=== PATIENT | female | born 1990 | race Caucasian/White ===

== ENCOUNTER 2017-01-24 08:45 | Inpatient (IN) ==
--- NOTE | 2017-01-24 09:05 | Emergency Department Note ---
Disposition Clinical Impression: Suicidal ideation Disposition: Admitted As Inpatient Condition: Good Referrals: NO,PCP [Primary Care Provider] - Time of Disposition: 11:30 Psych HPI - General Chief Complaint: ED Psychiatric Symptoms Stated Complaint: psych consult Time Seen by Provider: 01/24/17 09:02 Source: patient Limitations: no limitations Nursing Notes Reviewed: Yes Vital Signs Reviewed: Yes - History of Present Illness HPI Narrative: Patient emergency department suicidal thoughts. History of depression that she states is getting worse. Initially started on what to do and taken off her lithium, Seroquel, and Zoloft. Patient plans intentionally overdosed on heroin. History of opiate abuse with last encounter in June. Pt complaint: suicidal ideation Onset (ago): day(s) Duration: constant History of similar episodes: No Improves with: none Worsens with: medication Context: new medication(s) Alleged intoxication: No Associated Psychiatric Symptoms: depression, suicidal ideation Associated symptoms: Reports: denies other symptoms Traumatic symptoms: denies traumatic injury Treatments prior to arrival: none Self harm or harm to others: admits thoughts of self harm, has plan - Related Data Home Medications Medication Instructions Recorded Confirmed Hulett Carbonate 300 mg PO DAILY 11/14/16 11/14/16 Medroxyprogesterone Acetate 150 mg IM Q3M 11/14/16 11/14/16 [DEPO-Provera] Naltrexone HCl [Revia] 50 mg PO DAILY 11/14/16 11/14/16 Naltrexone Microspheres [Vivitrol] 380 mg IM QMONTH 11/14/16 11/14/16 Quetiapine Fumarate [Seroquel Xr] 150 mg PO DAILY 11/14/16 11/14/16 Sertraline [Zoloft] 100 mg PO DAILY 11/14/16 11/14/16 Trazodone HCl 100 mg PO HS 11/14/16 11/14/16 valACYclovir [Valtrex] 500 mg PO BID 11/14/16 11/14/16 Allergies Allergy/AdvReac Type Severity Reaction Status Date / Time No Known Allergies Allergy Verified 11/14/16 10:02 Review of Systems: Patient denies any physical complaints. All systems ED: reviewed and negative except as stated. Constitutional: Denies: fever Cardiovascular: Denies: chest pain Respiratory: Denies: dyspnea Gastrointestinal: Denies: vomiting Past Medical History - Past Medical History Attestation: Yes The following information was validated with the patient. Source: patient Medical history: Reports: hepatitis, other Surgical history: Reports: no surgical history Psychiatric history: Reports: bipolar, PTSD - Social History Smoking Status: Current every day smoker Smokeless Tobacco Status: No Alcohol use: Reports: none Drug use: Reports: none Physical Exam Patient awake alert sitting up in bed in no acute distress. Flat affect., Cooperative. - General Limitations: no limitations General appearance: alert - Head Head exam: atraumatic - Eye Eye exam: Present: normal appearance - ENT ENT exam: normal exam - Neck Neck exam: Present: normal inspection - Chest Chest inspection: Present: normal inspection - Respiratory Respiratory exam: Present: normal lung sounds bilaterally - Cardiovascular Cardiovascular exam: Present: regular rate, normal rhythm - Neurological Exam Neurological exam: Present: alert, oriented X3 - Psychiatric Psychiatric exam: Present: flat affect - Skin Skin exam: Present: warm, dry, intact Course Course Narrative: Suicidal thoughts with the plan. [place] slip on chart. Medical clearance and 1A evaluation. - Reevaluation(s) Reevaluation #1: Repeat BP 179/72. She is asymptomatic. 1A at bedside. Patient has been medically cleared. Time: 10:51 - Consultations Consultation #1: 1A accepts for admit Time: 11:30 Vital Signs Temperature 98.2 F 01/24/17 08:47 Pulse Rate 99 01/24/17 08:47 Respiratory Rate 18 01/24/17 08:47 Blood Pressure 186/118 01/24/17 08:47 O2 Sat by Pulse Oximetry 97 01/24/17 08:47 Temperature 98.2 F 01/24/17 08:47 Pulse Rate 72 01/24/17 10:39 Respiratory Rate 18 01/24/17 09:05 Blood Pressure 179/75 01/24/17 10:39 O2 Sat by Pulse Oximetry 98 01/24/17 10:39 Oxygen Delivery Oxygen Delivery Room Air Psych - Lab Data Lab results reviewed: Yes I reviewed the patient's lab results. Result diagrams: 01/24/17 09:10 01/24/17 09:10 Lab Results 01/24/17 01/24/17 01/24/17 Range/Units 08:51 08:51 09:05 WBC (4.3-11.1) K/mcL RBC (3.82-4.97) M/mcL Hgb (11.5-15.4) g/dL Hct (35.3-44.9) % MCV (83.0-100.0) fL MCH (28.0-33.3) pg MCHC (31.6-35.5) g/dL RDW (11.5-14.5) % Plt Count (140-400) K/mcL MPV (9.4-12.4) fL Immature Gran % (0-4) % Seg Neutrophils % % Lymphocytes % % Monocytes % % Eosinophils % % Basophils % % Neutrophils # (1.6-8.9) K/mcL Lymphocytes # (0.6-4.6) K/mcL Monocytes # (0.0-1.3) K/mcL Eosinophils # (0.0-0.6) K/mcL Basophils # (0.0-0.2) K/mcL Sodium (136-145) mEq/L Potassium (3.5-4.5) mEq/L Chloride (98-109) mEq/L Carbon Dioxide (19-29) mEq/L BUN (7-20) mg/dL Creatinine (0.57-1.11) mg/dL Est GFR ( Amer) (> 60) Est GFR (Non-Af Amer) (> 60) BUN/Creatinine Ratio (6-26) Glucose (70-99) mg/dL Calculated Osmolality (280-300) Calcium (8.6-10.8) mg/dL Urine Color Yellow (Yellow) Urine Clarity Clear (Clear) Urine pH 6.5 (5.0-8.0) pH Units Ur Specific [place] 1.016 (1.010-1.025) Urine Protein Negative (Neg-Trace) mg/dL Urine Glucose (UA) Normal (Normal) mg/dL Urine Ketones Negative (Negative) mg/dL Urine Blood Negative (Negative) Urine Nitrite Negative (Negative) Urine Bilirubin Negative (Negative) Urine Urobilinogen Normal (Normal) mg/dL Ur Leukocyte Esterase Negative (Negative) Urine Test Negative (Negative) Salicylates (15-30) mg/dL Urine Opiates Screen Negative (Tekwba=253) ng/mL Acetaminophen (10-30) mcg/mL Ur Barbiturates Screen Negative (Ejzdni=470) ng/mL Ur Phencyclidine Scrn Negative (Cutoff=25) ng/mL Ur Amphetamines Screen Negative (Sysxyw=0821) ng/mL U Benzodiazepines Scrn Negative (Cptyjm=960) ng/mL Hulett (0.6-1.2) mEq/L Urine Cocaine Screen Negative (Cutoff= 300) ng/mL U Marijuana (THC) Screen Negative (Cutoff = 50) ng/mL Ethyl Alcohol (0-10) mg/dL 01/24/17 01/24/17 01/24/17 Range/Units 09:10 09:10 09:10 WBC 11.6 H (4.3-11.1) K/mcL RBC 5.27 H (3.82-4.97) M/mcL Hgb 15.0 (11.5-15.4) g/dL Hct 44.7 (35.3-44.9) % MCV 84.8 (83.0-100.0) fL MCH 28.5 (28.0-33.3) pg MCHC 33.6 (31.6-35.5) g/dL RDW 13.1 (11.5-14.5) % Plt Count 242 (140-400) K/mcL MPV 10.5 (9.4-12.4) fL Immature Gran % 0.7 (0-4) % Seg Neutrophils % 54.2 % Lymphocytes % 32.6 % Monocytes % 7.8 % Eosinophils % 4.1 % Basophils % 0.6 % Neutrophils # 6.3 (1.6-8.9) K/mcL Lymphocytes # 3.8 (0.6-4.6) K/mcL Monocytes # 0.9 (0.0-1.3) K/mcL Eosinophils # 0.5 (0.0-0.6) K/mcL Basophils # 0.1 (0.0-0.2) K/mcL Sodium 138 (136-145) mEq/L Potassium 3.6 (3.5-4.5) mEq/L Chloride 108 (98-109) mEq/L Carbon Dioxide 20 (19-29) mEq/L BUN 10 (7-20) mg/dL Creatinine 0.76 (0.57-1.11) mg/dL Est GFR ( Amer) > 60 (> 60) Est GFR (Non-Af Amer) > 60 (> 60) BUN/Creatinine Ratio 13 (6-26) Glucose 113 H (70-99) mg/dL Calculated Osmolality 286 (280-300) Calcium 8.8 (8.6-10.8) mg/dL Urine Color (Yellow) Urine Clarity (Clear) Urine pH (5.0-8.0) pH Units Ur Specific [place] (1.010-1.025) Urine Protein (Neg-Trace) mg/dL Urine Glucose (UA) (Normal) mg/dL Urine Ketones (Negative) mg/dL Urine Blood (Negative) Urine Nitrite (Negative) Urine Bilirubin (Negative) Urine Urobilinogen (Normal) mg/dL Ur Leukocyte Esterase (Negative) Urine Test (Negative) Salicylates < 5.0 L (15-30) mg/dL Urine Opiates Screen (Zzuitq=196) ng/mL Acetaminophen < 1.0 L (10-30) mcg/mL Ur Barbiturates Screen (Xyyelx=690) ng/mL Ur Phencyclidine Scrn (Cutoff=25) ng/mL Ur Amphetamines Screen (Nbtesv=6923) ng/mL U Benzodiazepines Scrn (Qcyazg=927) ng/mL Hulett < 0.1 L (0.6-1.2) mEq/L Urine Cocaine Screen (Cutoff= 300) ng/mL U Marijuana (THC) Screen (Cutoff = 50) ng/mL Ethyl Alcohol < 10 (0-10) mg/dL Psychiatric Medical Clearance - Medical Clearance Checklist Does the patient have a NEW psychiatric condition?: No Any abnormalities indicating possible medical illness?: No Any history of medical issues?: Yes Medical History: No Social History Section defined Any abnormal vital signs prior to transfer?: Yes Current Vitals: Last Vital Signs Temp 98.2 F 01/24/17 08:47 Pulse 72 01/24/17 10:39 Resp 18 01/24/17 09:05 BP 179/75 01/24/17 10:39 Pulse Ox 98 01/24/17 10:39 Is the patient intoxicated or cognitively impaired?: No Psychiatric Lab Panel: Drug Levels and Toxicity 01/24/17 01/24/17 01/24/17 08:51 09:10 09:10 Urine Opiates Screen Negative Acetaminophen < 1.0 L Ur Barbiturates Screen Negative Ur Phencyclidine Scrn Negative Ur Amphetamines Screen Negative U Benzodiazepines Scrn Negative Hulett < 0.1 L Urine Cocaine Screen Negative U Marijuana (THC) Screen Negative Ethyl Alcohol < 10 Any abnormalities on the physical exam?: No Any abnormal labs?: No Abnormal Labs: Abnormal lab results WBC 11.6 K/mcL (4.3-11.1) H 01/24/17 09:10 RBC 5.27 M/mcL (3.82-4.97) H 01/24/17 09:10 Glucose 113 mg/dL (70-99) H 01/24/17 09:10 Salicylates < 5.0 mg/dL (15-30) L 01/24/17 09:10 Acetaminophen < 1.0 mcg/mL (10-30) L 01/24/17 09:10 Hulett < 0.1 mEq/L (0.6-1.2) L 01/24/17 09:10 Does the patient require durable medical equiptment?: No Is the patient ambulatory?: Yes Is the patient a fall risk?: No Has the patient been medically cleared?: Yes Any acute medical condition require Tx prior to transfer?: No Critical Care Time Critical Care Time: No
[2017-01-24 09:18] LABS: Basophils # 0.1 K/mcL (0.0-0.2); Basophils % 0.6 %; Eosinophils # 0.5 K/mcL (0.0-0.6); Eosinophils % 4.1 %; Hematocrit 44.7 % (35.3-44.9); Immature Granulocytes % 0.7 % (0-4); Lymphocytes # 3.8 K/mcL (0.6-4.6); Lymphocytes % 32.6 %; Mean Corpuscular HGB Conc 33.6 g/dL (31.6-35.5); Mean Corpuscular Hemoglobin 28.5 pg (28.0-33.3); Mean Corpuscular Volume 84.8 fL (83.0-100.0); Mean Platelet Volume 10.5 fL (9.4-12.4); Monocytes # 0.9 K/mcL (0.0-1.3); Monocytes % 7.8 %; Neutrophils # 6.3 K/mcL (1.6-8.9); Platelet Count 242 K/mcL (140-400); Red Blood Count 5.27 M/mcL (3.82-4.97); Red Cell Distribution Width 13.1 % (11.5-14.5); Segmented Neutrophils % 54.2 %
[2017-01-24 09:19] LABS: Bilirubin,Urine Negative (Negative); Blood,Urine Negative (Negative); Clarity,Urine Clear (Clear); Color,Urine Yellow (Yellow); Glucose,Urine (UA) Normal (Normal); Ketones,Urine Negative (Negative); Leukocyte Esterase,Urine Negative (Negative); Nitrite,Urine Negative (Negative); PH,Urine 6.5 pH Units (5.0-8.0); Protein,Urine Negative (Neg-Trace); Specific Gravity,Urine 1.016 (1.010-1.025); Urobilinogen,Urine Normal (Normal)
[2017-01-24 09:31] LABS: BUN/Creatinine Ratio 13 (6-26); Blood Urea Nitrogen 10 mg/dL (7-20); Calcium 8.8 mg/dL (8.6-10.8); Carbon Dioxide 20 mEq/L (19-29); Chloride 108 mEq/L (98-109); Glucose 113 mg/dL (70-99); Osmolality,Calculated 286 (280-300); Potassium 3.6 mEq/L (3.5-4.5); Sodium 138 mEq/L (136-145); eGFR For African Americans > 60 (> 60); eGFR For Non-African Americans > 60 (> 60)
[2017-01-24 09:32] LABS: Acetaminophen < 1.0 mcg/mL (10-30); Ethanol < 10 mg/dL (0-10); Salicylate < 5.0 mg/dL (15-30)
[2017-01-24 09:34] LABS: Amphetamine Screen,Urine Negative ng/mL (Cutoff=1000); Barbiturate Screen,Urine Negative ng/mL (Cutoff=200); Benzodiazepines Screen,Urine Negative ng/mL (Cutoff=200); Cannabinoid Screen,Urine Negative ng/mL (Cutoff = 50); Cocaine Screen,Urine Negative ng/mL (Cutoff= 300); Opiate Screen,Urine Negative ng/mL (Cutoff=300); Phencyclidine Screen,Urine Negative ng/mL (Cutoff=25)
[2017-01-24] MEDS ORDERED: (Diclofenac Sodium [Voltaren] 1 APPL) TP PRN (16:14)
[2017-01-24] MEDS ORDERED: hydrOXYzine pamoate 25 MG CAPSULE PO PRN (16:19)
[2017-01-24] MEDS ORDERED: *HR* LORazepam 2 MG/ML VIAL IM PRN (16:19)
[2017-01-24] MEDS ORDERED: *HR* LORazepam 1 MG TABLET PO PRN (16:19)
[2017-01-24] MEDS ORDERED: Haloperidol Lactate 5 MG/ML VIAL IM PRN (16:19)
[2017-01-24] MEDS ORDERED: MOM Conc 10 ML UD.LIQ PO PRN (16:19)
[2017-01-24] MEDS ORDERED: Acetaminophen 325 MG TABLET PO PRN (16:19)
[2017-01-24] MEDS ORDERED: Mag Hydrox/Al Hydrox/Simeth 30 ML UDC PO PRN (16:19)
[2017-01-24] MEDS ORDERED: Lurasidone 20 MG TABLET PO SCH (21:00)
[2017-01-24] MEDS ORDERED: Ibuprofen 400 MG TABLET PO PRN (21:27)
[2017-01-25] MEDS: valACYclovir 500 MG TABLET PO SCH (09:22)
[2017-01-25] MEDS: hydroCHLOROthiazide 25 MG TABLET PO SCH (09:22)
--- NOTE | 2017-01-25 11:07 | Psychiatry History & Physical ---
Date of Encounter: 01/25/17 Time of Encounter: 10:25 History of Present Illness Patient Stated Chief Complaint: Depression and suicidal ideation Medicare Admission Attestation: For traditional Medicare patients the provided hospital inpatient services are reasonable and necessary and in the case of services not specified as inpatient -only under 42 CFR 419.22 (n), that they are appropriately provided as inpatient services in accordance 42 CFR 412.3. For Critical Access Hospital the patient may reasonably be expected to be discharged or transferred to a hospital within 96 hours after admission to the Critical Access Hospital. Admitted From: Emergency Dept History of Present Illness: Ms. Núñez is a 27 year old female admitted for evaluation and treatment of depression and suicidal ideation. Patient reports that her medications were changed several times in the last few weeks, she was taken off Zoloft and lithium and placed on latuda. Patient did not tolerate the medication changes she will complain off increase in anxiety and depression and suicidal ideation. Also she will complain of mood swings and irritability. She has been in recovery program from drugs and has been sober for almost 8 months and she was interested in adjusting her medication and stabilize her mood. Patient has long history of psychiatric treatment for bipolar disorder starting around 16 years old, had previous hospitalization and denied any previous suicide attempts. She smokes one pack cigarettes daily and consuming about 2 L of caffeinated beverage. She will return back to her residential treatment program after discharge from the hospital. Past Med Surg Social Fam HX - Past Medical History Medical history: hepatitis, other - Past Psychiatric History Psychiatric history: Reports: anxiety, bipolar, previous psychiatric hospitalization - Past Surgical History Surgical History: no surgical history - Social History Smoking Status: Current every day smoker Smokeless Tobacco Status: No Alcohol use: none Drug use: none Medications & Allergies Medroxyprogesterone Acetate [DEPO-Provera] 150 mg IM Q3M 11/14/16 [History] Naltrexone Microspheres [Vivitrol] 380 mg IM QMONTH 11/14/16 [History] valACYclovir [Valtrex] 500 mg PO DAILY 11/14/16 [History] Diclofenac Sodium [Voltaren] 1 appl TP DAILY PRN 01/24/17 [History] Lurasidone [Latuda] 20 mg PO HS 01/24/17 [History] hydroCHLOROthiazide [Hydrochlorothiazide] 12.5 mg PO DAILY 01/24/17 [History] Allergies No Known Allergies Allergy (Verified 11/14/16 10:02) Review of Systems Psychiatric: Reports: depression, anxiety, suicidal ideation, irritability, mood swings Mental Status Exam Patient orientation: Yes Person, Yes Time, Yes Place Level of alertness: Alert Patient appearance: Appropriate, Well Groomed, Obese Behavior: cooperative, anxious, dramatic Psychomotor activity: Normal Eye contact: Maintains Eye Contact Mood description: Anxious, Labile, Irritable Affect description: congruent with mood, labile, tearful Speech pattern: Normal rate, Normal rhythm, Normal tone, Pressured Speech volume: Normal Thought process: Linear, Goal Oriented Thought content: Yes Suicidal ideation, No Homicidal ideation, No Overt delusions Perceptual disturbances: No Auditory hallucinations, No Visual hallucinations Attention span: Capable of Focused Attention Memory description: Grossly Intact Patient reliability: Reliable Historian Intelligence estimate: Average Judgment: Limited Insight: Partial Results - Vital Signs Vital signs: Temp Pulse Resp BP Pulse Ox 97.8 F 74 16 121/76 98 01/25/17 08:55 01/25/17 08:55 01/25/17 08:55 01/25/17 08:55 01/24/17 14:39 - Labs Labs: Laboratory Last Values WBC 11.6 K/mcL (4.3-11.1) H 01/24/17 09:10 RBC 5.27 M/mcL (3.82-4.97) H 01/24/17 09:10 Hgb 15.0 g/dL (11.5-15.4) 01/24/17 09:10 Hct 44.7 % (35.3-44.9) 01/24/17 09:10 MCV 84.8 fL (83.0-100.0) 01/24/17 09:10 MCH 28.5 pg (28.0-33.3) 01/24/17 09:10 MCHC 33.6 g/dL (31.6-35.5) 01/24/17 09:10 RDW 13.1 % (11.5-14.5) 01/24/17 09:10 Plt Count 242 K/mcL (140-400) 01/24/17 09:10 MPV 10.5 fL (9.4-12.4) 01/24/17 09:10 Immature Gran % 0.7 % (0-4) 01/24/17 09:10 Seg Neutrophils % 54.2 % 01/24/17 09:10 Lymphocytes % 32.6 % 01/24/17 09:10 Monocytes % 7.8 % 01/24/17 09:10 Eosinophils % 4.1 % 01/24/17 09:10 Basophils % 0.6 % 01/24/17 09:10 Neutrophils # 6.3 K/mcL (1.6-8.9) 01/24/17 09:10 Lymphocytes # 3.8 K/mcL (0.6-4.6) 01/24/17 09:10 Monocytes # 0.9 K/mcL (0.0-1.3) 01/24/17 09:10 Eosinophils # 0.5 K/mcL (0.0-0.6) 01/24/17 09:10 Basophils # 0.1 K/mcL (0.0-0.2) 01/24/17 09:10 Sodium 138 mEq/L (136-145) 01/24/17 09:10 Potassium 3.6 mEq/L (3.5-4.5) 01/24/17 09:10 Chloride 108 mEq/L (98-109) 01/24/17 09:10 Carbon Dioxide 20 mEq/L (19-29) 01/24/17 09:10 BUN 10 mg/dL (7-20) 01/24/17 09:10 Creatinine 0.76 mg/dL (0.57-1.11) 01/24/17 09:10 Est GFR ( Amer) > 60 (> 60) 01/24/17 09:10 Est GFR (Non-Af Amer) > 60 (> 60) 01/24/17 09:10 BUN/Creatinine Ratio 13 (6-26) 01/24/17 09:10 Glucose 113 mg/dL (70-99) H 01/24/17 09:10 Calculated Osmolality 286 (280-300) 01/24/17 09:10 Calcium 8.8 mg/dL (8.6-10.8) 01/24/17 09:10 Urine Color Yellow (Yellow) 01/24/17 09:05 Urine Clarity Clear (Clear) 01/24/17 09:05 Urine pH 6.5 pH Units (5.0-8.0) 01/24/17 09:05 Ur Specific [place] 1.016 (1.010-1.025) 01/24/17 09:05 Urine Protein Negative mg/dL (Neg-Trace) 01/24/17 09:05 Urine Glucose (UA) Normal mg/dL (Normal) 01/24/17 09:05 Urine Ketones Negative mg/dL (Negative) 01/24/17 09:05 Urine Blood Negative (Negative) 01/24/17 09:05 Urine Nitrite Negative (Negative) 01/24/17 09:05 Urine Bilirubin Negative (Negative) 01/24/17 09:05 Urine Urobilinogen Normal mg/dL (Normal) 01/24/17 09:05 Ur Leukocyte Esterase Negative (Negative) 01/24/17 09:05 Urine Test Negative (Negative) 01/24/17 08:51 Salicylates < 5.0 mg/dL (15-30) L 01/24/17 09:10 Urine Opiates Screen Negative ng/mL (Xpzpzf=618) 01/24/17 08:51 Acetaminophen < 1.0 mcg/mL (10-30) L 01/24/17 09:10 Ur Barbiturates Screen Negative ng/mL (Yxspwx=221) 01/24/17 08:51 Ur Phencyclidine Scrn Negative ng/mL (Cutoff=25) 01/24/17 08:51 Ur Amphetamines Screen Negative ng/mL (Fahqug=8214) 01/24/17 08:51 U Benzodiazepines Scrn Negative ng/mL (Jwfmwm=287) 01/24/17 08:51 [place] < 0.1 mEq/L (0.6-1.2) L 01/24/17 09:10 Urine Cocaine Screen Negative ng/mL (Cutoff= 300) 01/24/17 08:51 U Marijuana (THC) Screen Negative ng/mL (Cutoff = 50) 01/24/17 08:51 Ethyl Alcohol < 10 mg/dL (0-10) 01/24/17 09:10 Assessment and Plan (1) Bipolar disorder current episode depressed Current visit: Yes Status: Acute Plan: Admit inpatient for safety and stabilization, Close observation, Suicide Precautions per unit protocol, Encourage participation in unit milieu, Group Therapy, Monitor sleep, Monitor appetite Additional Plan: Discussed treatment plan with the patient. She was started on Effexor XR 75 mg daily and Topamax 25 mg twice a day, benefits and side effects were discussed and she is agreeable to start. We will discontinue latuda. Risks, benefits, side effects, alternatives discussed w/pt: Yes Patient agreeable to treatment: Yes Estimated Length of Stay (Days): 5 Qualifiers: Qualified Code(s): F31.32 - Bipolar disorder, current episode depressed, moderate
[2017-01-25] MEDS: Venlafaxine XR (24 HR) 75 MG CAP.ER.24H PO SCH (11:25)
[2017-01-25] MEDS: Nicotine 2 MG GUM BC PRN ×2 (11:25→17:49)
[2017-01-25] MEDS: Topiramate 25 MG TABLET PO SCH ×2 (12:26→20:56)
[2017-01-25] MEDS: traZODone 50 MG TABLET PO PRN (20:53)
[2017-01-26] MEDS: hydroCHLOROthiazide 25 MG TABLET PO SCH (09:13)
[2017-01-26] MEDS: Venlafaxine XR (24 HR) 75 MG CAP.ER.24H PO SCH (09:14)
[2017-01-26] MEDS: valACYclovir 500 MG TABLET PO SCH (09:14)
[2017-01-26] MEDS: Nicotine 2 MG GUM BC PRN ×2 (09:15→12:12)
[2017-01-26] MEDS: Topiramate 25 MG TABLET PO SCH ×2 (09:15→20:21)
--- NOTE | 2017-01-26 16:19 | Psychiatry Progress Note ---
Date of Encounter: 01/26/17 Time of Encounter: 13:45 Subjective Interval history: Patient seen for follow-up. She reports feeling much better and she is tolerating new medication without any side effects. She reported sleep improvements. Denies any suicidal ideation. Review of Systems Psychiatric: Reports: depression, anxiety, suicidal ideation, irritability, mood swings Objective: Exam Patient orientation: Yes Person, Yes Time, Yes Place Level of alertness: Alert Patient appearance: Appropriate, Well Groomed, Obese Behavior: calm, cooperative Psychomotor activity: Normal Eye contact: Maintains Eye Contact Mood description: Euthymic/stable Affect description: congruent with mood, full range Speech pattern: Normal rate, Normal rhythm, Normal tone Speech volume: Normal Thought process: Linear, Goal Oriented Thought content: No Suicidal ideation, No Homicidal ideation, No Overt delusions Perceptual disturbances: No Auditory hallucinations, No Visual hallucinations Judgment: Fair Insight: Partial Results - Vital Signs Vital Signs: Temp Pulse Resp BP Pulse Ox 97.2 F L 61 18 132/72 98 01/26/17 08:42 01/26/17 08:42 01/26/17 08:42 01/26/17 08:42 01/24/17 14:39 Assessment and Plan (1) Bipolar disorder current episode depressed Current visit: Yes Status: Acute Risks, benefits, side effects, alternatives discussed w/pt: Yes Patient agreeable to treatment: Yes Qualifiers: Qualified Code(s): F31.32 - Bipolar disorder, current episode depressed, moderate Consult Discharge Plan - Plan Referrals: [facility] [Outside] - 02/07/17 2:40 pm (The above appointment is with Dr. Duffy. ) [facility] (You will resume daily groups on discharge.)
[2017-01-26] MEDS: traZODone 50 MG TABLET PO PRN (20:21)
[2017-01-27] MEDS: hydroCHLOROthiazide 25 MG TABLET PO SCH (08:48)
[2017-01-27] MEDS: Venlafaxine XR (24 HR) 75 MG CAP.ER.24H PO SCH (08:49)
[2017-01-27] MEDS: Topiramate 25 MG TABLET PO SCH (08:49)
[2017-01-27] MEDS: valACYclovir 500 MG TABLET PO SCH (08:49)
[2017-01-27 09:36] VITALS: BP 119/75
--- NOTE | 2017-01-27 15:20 | Discharge Summary ---
Date of Encounter: 01/27/17 Time of Encounter: 02:15 Diagnosis - Discharge Diagnosis (1) Bipolar disorder current episode depressed Status: Acute Qualifiers: Current episode severity: unspecified Qualified Code(s): F31.30 - Bipolar disorder, current episode depressed, mild or moderate severity, unspecified Medications - Discharge Medications Prescriptions: Topiramate [Topamax] 25 mg PO BID #60 tablet traZODone [TraZODone] 50 mg PO HS PRN #30 tablet PRN Reason: Insomnia Venlafaxine XR (24 HR) [Effexor XR] 75 mg PO DAILY #30 cap.er.24h Medroxyprogesterone Acetate [Depo-Provera] 150 mg IM Q3M 11/14/16 [History] Naltrexone Microspheres [Vivitrol] 380 mg IM QMONTH 11/14/16 [History] valACYclovir [Valtrex] 500 mg PO DAILY 11/14/16 [History] hydroCHLOROthiazide [Hydrochlorothiazide] 12.5 mg PO DAILY 01/24/17 [History] Topiramate [Topamax] 25 mg PO BID #60 tablet 01/27/17 [Rx] Venlafaxine XR (24 HR) [Effexor XR] 75 mg PO DAILY #30 cap.er.24h 01/27/17 [Rx] traZODone [TraZODone] 50 mg PO HS PRN #30 tablet 01/27/17 [Rx] Allergies No Known Allergies Allergy (Verified 11/14/16 10:02) Provider Date of admission: 01/24/17 15:55 Primary care physician: PCP NO Discharging clinician: Víctor Anguiano Assessment and Plan - Follow up Plan Follow up with: [facility] [Outside] - 02/07/17 2:40 pm (The above appointment is with Dr. Duffy. ) Evon [facility] [Outside] (You will resume daily groups on discharge.) Overall status at discharge: Stable Disposition: Transfer Inpatient Rehab Fac Hospital Course Hospital course: Ms. Núñez is a 27 year old female who was referred for hospitalization for depression and suicidal ideation. After reviewing the symptom diagnosis treatment and his anger as well as side effects alternative treatment consequences of nontreatment getting informed consent from the patient patient was started on Effexor 75 mg daily Topamax 25 mg twice a day and trazodone 50 mg at bedtime when necessary for her symptoms. Patient was encouraged to attend and part in groups and activities on the unit which she did. Patient learned coping skills and work and developed a good safety plan. Patient was future oriented and positive and hopeful and denies any suicidal or homicidal ideation at the time of discharge. Her discharge condition was stable. Patient is to return back to the recovery house from where she was hospitalized. Overall patient's discharge condition was stable Does patient wish to continue nicotine replacement upon disc: No - Time Spent with Patient Total time spent providing and/or coordinating discharge services: Less than 30 minutes Quality - Multiple Antipsychotics Patient discharged on 2 or more antipsychotic medications: No Procedures - Procedures Procedures: Medication Management, Crisis Stabilization, Supportive Therapy, Group Therapy, Psychoeducational Therapy Mental Status Exam - Mental Status Exam Patient orientation: Yes Person, Yes Time, Yes Place Level of alertness: Alert Patient appearance: Appropriate, Well Groomed Behavior: calm, cooperative Psychomotor activity: Normal Eye contact: Maintains Eye Contact Mood description: Euthymic/stable Affect description: congruent with mood, full range Speech pattern: Normal rate, Normal rhythm, Normal tone Speech Volume: Normal Thought process: Linear, Goal Oriented Thought Content: No Suicidal ideation, No Homicidal ideation, No Overt delusions Perceptual Disturbances: No Auditory hallucinations, No Visual hallucinations Judgment: Limited Insight: Partial
[2017-01-30] MEDS ORDERED: NALTREXONE MICROSPHERES 380 MG IM SCH (16:15)
== END 2017-01-27 16:30 | DRG 753 ==
LOC: EMEROO 08:45 → SUATTDRO 15:55 → 1ANU 15:55
PROVIDERS: ADMIT Psychiatry & Neurology Psychiatry; ATTEND Psychiatry & Neurology Psychiatry